=== PATIENT | male | born 1985 | race Caucasian/White ===

== ENCOUNTER → 2022-08-20 | Outpatient (CLI) | payer OTHER ==
[~2022-08-20] MED LIST: ISOVUE-300 61% 100ML VIAL ONE; LIDOCAINE 1% MDV 20ML VIAL ONE; PROHANCE 279.3MG/ML 5ML VIAL ONE
== END ==
LOC: M PLAIMG 12:47
PROVIDERS: ATTEND Physician Assistant
DX: M67.814 Other specified disorders of tendon, left shoulder (principal); M25.512 Pain in left shoulder
CPT/HCPCS: 23350; 73223; 76000; A9576; Q9967